=== PATIENT | female | born 1935 | race Two or more races ===

== ENCOUNTER 2020-09-06 11:32 | Inpatient (IN) | payer OTHER ==
[~2020-09-06] VITALS: Ht 144.8 cm; Wt 50.3 kg
--- NOTE | 2020-09-06 11:50 | NUR ---
BIBDAUGHTER, C/O LLQ ABDOMINAL PAIN R/T BACK PS.5/10 +N/V X 3 DAYS. DAUGHTER AT BEDSIDE FOR TRANSLATION IN OCCITAN. PATIENT A/OX4, BREATHING EVEN AND UNLABORED, NO SOB NOTED. CHANGED INTO A GOWN.
[2020-09-06] MEDS ORDERED: ONDANSETRON HCL/PF 4 MG/2 ML VIAL ONE (12:07)
[2020-09-06] MEDS ORDERED: MORPHINE SULFATE INJ 2 MG/ML DISP.SYRIN ONE (12:07)
[2020-09-06] MEDS ORDERED: PANTOPRAZOLE 40 MG VIAL ONE (12:07)
[2020-09-06 12:10] LABS: BILIRUBIN,URINE SMALL (NEGATIVE); COLOR,URINE DARK YELLOW (YELLOW); LEUKOCYTE ESTERASE ,URINE Negative (NEGATIVE); NITRITE, URINE Negative (NEGATIVE); PROTEIN,URINE 100 mg/dl (NEGATIVE); UGLUCOSE Negative (NEGATIVE); UROBILINOGEN,URINE 0.2 EU/dL (0.2)
--- NOTE | 2020-09-06 12:10 | NUR ---
IV LINE ESTABLISHED, BLOOD DRAWN AND SENT TO LAB. URINE SENT TO LAB
[2020-09-06] MEDS ORDERED: LOSA50TA39 PO (12:12)
[2020-09-06] MEDS ORDERED: FAMO20TA8 PO (12:12)
[2020-09-06] MEDS ORDERED: METO5TAB2 PO (12:12)
[2020-09-06] MEDS ORDERED: PANT40TA49 PO (12:12)
[2020-09-06 12:15] LABS: BASOPHILS # (AUTO) 0.1 /CMM (0.0-0.2); EOSINOPHILS % (AUTO) 1.2 % (0.0-6.0); HEMATOCRIT 32 % (33-45); HEMOGLOBIN 10.7 g/dL (11.5-14.8); LYMPHOCYTES # (AUTO) 1.5 /CMM (0.8-4.8); MEAN CORPUSCULAR HGB CONC 33 g/dl (31.0-36.0); MEAN CORPUSCULAR VOLUME 82 fL (82-100); MONOCYTES # (AUTO) 0.9 /CMM (0.1-1.30); MONOCYTES % (AUTO) 8.6 % (2.0-12.0); NEUTROPHILS # (AUTO) 7.9 /CMM (1.8-8.9); NEUTROPHILS % (AUTO) 75.2 % (43.0-81.0); PLATELET COUNT (AUTO) 609 /CMM (150-450); RED BLOOD CELL COUNT(AUTO) 3.88 MIL/uL (4.0-5.2); WHITE BLOOD COUNT (AUTO) 10.5 K/uL (4.3-11.0)
[2020-09-06 12:26] LABS: CARBON DIOXIDE 25 mmol/L (21-32); CHLORIDE 96 mmol/L (98-107); CREATININE 0.7 mg/dL (0.6-1.3); GLUCOSE 152 mg/dL (74-106); POTASSIUM 4.8 mmol/L (3.5-5.1); SODIUM SERUM 131 mmol/L (136-145); UREA NITROGEN, BLOOD 15 mg/dL (7-18)
[2020-09-06 12:30] LABS: RBC,URINE 0-2 /HPF (0-2)
[2020-09-06] MEDS ORDERED: IV NS 0.9% 1,000 ML BAG IV ONE (12:30)
[2020-09-06] MEDS ORDERED: PANTOPRAZOLE 40 MG VIAL IV ONE (12:30)
[2020-09-06] MEDS ORDERED: ONDANSETRON HCL/PF 4 MG/2 ML VIAL IVP ONE (12:30)
[2020-09-06] MEDS ORDERED: MORPHINE SULFATE INJ 2 MG/ML DISP.SYRIN IV ONE (12:30)
[2020-09-06 12:31] LABS: BACTERIA,URINE None seen /HPF (None Seen)
[2020-09-06 12:37] LABS: ALANINE AMINOTRANSFERASE 52 U/L (12-78); ALKALINE PHOSPHATASE 340 U/L (46-116); ASPARTATE AMINOTRANSFERASE 81 U/L (15-37); BILIRUBIN,DIRECT 0.1 mg/dL (0.0-0.2); BILIRUBIN,TOTAL 0.4 mg/dL (0.2-1.0); TOTAL PROTEIN, SERUM 7.2 g/dL (6.4-8.2)
--- NOTE | 2020-09-06 12:37 | NUR ---
TAKEN TO CT
[2020-09-06 13:00] LABS: LIPASE 1102 U/L (73-393)
[2020-09-06] MEDS ORDERED: MAGNESIUM HYDROXIDE 30 ML UDC PO PRN (14:00)
[2020-09-06] MEDS ORDERED: MORPHINE SULFATE INJ 2 MG/ML DISP.SYRIN IV PRN (14:00)
[2020-09-06] MEDS ORDERED: MAG HYDROX/AL HYDROX/SIMETH 30 ML UDC PO PRN (14:00)
[2020-09-06] MEDS ORDERED: Z GUARD REMEDY 2 OZ OINT TP PRN (14:00)
[2020-09-06] MEDS ORDERED: ONDANSETRON HCL/PF 4 MG/2 ML VIAL IVP PRN (14:00)
[2020-09-06] MEDS ORDERED: LORAZEPAM INJ 2 MG/ML VIAL IV PRN (14:00)
--- NOTE | 2020-09-06 14:07 | NUR ---
REPORT GIVEN TO EMILIE ALARCON FOR TJ.
--- NOTE | 2020-09-06 14:28 | NUR ---
PATIENT TRANSFERRED TO ROOM 304-1, IN STABLE CONDITION. PATIENT RESTING.
[2020-09-06 14:30] VITALS: BP 132/72
--- NOTE | 2020-09-06 14:30 | NUR ---
RN NOTES PATIENT TRANSFERRED TO UNIT AT ROOM 304-1 VIA RNEY, ACCOMPANIED BY 2 ER NURSES. PATIENT ABLE TO AMBULATE SHORT DISTANCE W/ ASSIST. MALAY-SPEAKING, A/O X4, ABLE TO MAKE NEEDS KNOWN. BREATHING EVEN AND UNLABORED IN ROOM AIR. SAFETY MEASURES INSTITUTED. CALL LIGHT USE DEMONSTRATED TO PATIENT, ABLE TO RETURN DEMO. WILL CONTINUE TO MONITOR.
[2020-09-06] MEDS: IV NS 0.9% 1,000 ML IV PRN (15:02)
[2020-09-06] MEDS: PANTOPRAZOLE 40 MG VIAL IV SCH (15:03)
[2020-09-06] MEDS: ENOXAPARIN SODIUM 40 MG/0.4 ML DISP.SYRIN SQ SCH (15:20)
[2020-09-06] MEDS: METOCLOPRAMIDE HCL 10 MG/2 ML VIAL IV SCH (16:10)
--- NOTE | 2020-09-06 16:33 | NUR ---
RN NOTES PATIENT RESTING IN BED, PROVIDED W/ WARM BLANKET. SIA BOYCE, TRANSLATED KOREAN FOR STAFF/PATIENT.
--- NOTE | 2020-09-06 18:08 | NUR ---
RN NOTES PATIENT RESTING IN BED, EYES CLOSED, ABLE TO BE AWAKENED. BREATHING EVEN AND UNLABORED, CONTINUES ON ROOM AIR, NO ACUTE DISTRESS. IVF OF NS INFUSING AT 100ML/HR; IV MEDS GIVEN TO PATIENT. SPOKE W/ PATIENT'S DTR, DESHAWN, AND INFORMED ABOUT PATIENT'S ADMISSION TO UNIT AND PLAN OF CARE FOR GI CONSULT, VERBALIZED AGREEMENT W/ PLAN. NPO STATUS AND SAFETY PRECAUTIONS MAINTAINED.
--- NOTE | 2020-09-06 19:30 | NUR ---
MS RN OPENING PATIENT IN BED. AWAKE. DAUGHTER IN ROOM. NPO SIGN IN PLACE. R. AC RUNNING NS @100 ML/HR. NO S/S OF DISTRESS. NO C/O PAIN ENRIQUE. SAFETY IN PLACE. WILL CONTINUE TO MONITOR.
[2020-09-06 20:00] VITALS: BP_SYST 126; BP_SYST 136; BP_DIAS 66; BP_DIAS 88
[2020-09-07] MEDS: IV NS 0.9% 1,000 ML IV PRN ×2 (03:47→18:41)
[2020-09-07 06:10] LABS: BASOPHILS # (AUTO) 0.1 /CMM (0.0-0.2); BASOPHILS % (AUTO) 0.6 % (0.0-2.0); EOSINOPHILS % (AUTO) 4.3 % (0.0-6.0); HEMATOCRIT 29 % (33-45); HEMOGLOBIN 9.6 g/dL (11.5-14.8); LYMPHOCYTES # (AUTO) 1.4 /CMM (0.8-4.8); MEAN CORPUSCULAR HGB CONC 33 g/dl (31.0-36.0); MEAN CORPUSCULAR VOLUME 85 fL (82-100); MONOCYTES % (AUTO) 10.4 % (2.0-12.0); NEUTROPHILS # (AUTO) 6.9 /CMM (1.8-8.9); NEUTROPHILS % (AUTO) 70.7 % (43.0-81.0); PLATELET COUNT (AUTO) 510 /CMM (150-450); RED BLOOD CELL COUNT(AUTO) 3.42 MIL/uL (4.0-5.2); WHITE BLOOD COUNT (AUTO) 9.8 K/uL (4.3-11.0)
--- NOTE | 2020-09-07 06:48 | NUR ---
MS RN CLOSING PATIENT IN BED WITH EYES CLOSED, EASY TO AROUSE. ALERT AND ORIENTED x4 AND ABLE TO MAKE NEEDS KNOWN. ALL NEEDS ATTENDED. NO S/S OF DISTRESS. NO C/O PAIN ENRIQUE. IV RUNNING NS @100ML. PATIENT'S WALKER AT BED SIDE. SAFETY KEPT IN PLACE THE WHOLE SHIFT: BED IN LOWEST, LOCKED POSITION; CALL LIGHT WITHIN REACH, NPO SIGN POSTED. WILL ENDORSE CARE TO AM SHIFT RN.
[2020-09-07 07:11] LABS: CREATININE 0.6 mg/dL (0.6-1.3); PHOSPHORUS 3.4 mg/dL (2.5-4.9)
--- NOTE | 2020-09-07 07:30 | NUR ---
RN OPENING NOTES RECEIVED PATIENT IN BED, AWAKE, A&0 X 4, VITAL SIGNS TAKEN AND RECORDED, PATIENT IS BULGARIAN SPEAKING BUT UNDERSTANDS A LITTLE GUINEAN. ON ROOM AIR TOLERATING WELL. REINFORCED NPO STATUS. NO COMPLAINTS OF N/V AT THIS TIME, NO COMPLAINTS OF PAIN AT THIS TIME. WITH AN ONGOING IVF OF NS 1L X 100 CC/HR INFUSING WELL AT PATIENT'S RIGHT AC. NO INFILTRATION NOTED, NO REDNESS NOTED. SAFETY PRECAUTIONS OBSERVED: BED ON LOWEST LOCKED POSITION. KEPT CALL LIGHT WITHIN EASY REACH. WILL CONTINUE TO MONITOR CURRENT STATUS.
[2020-09-07 07:37] LABS: THYROID STIMULATING HORMONE 3.826 uIU/mL (0.358-3.74)
[2020-09-07 08:00] VITALS: BP 142/75
[2020-09-07] MEDS: METOCLOPRAMIDE HCL 10 MG/2 ML VIAL IV SCH ×2 (08:37→16:55)
[2020-09-07] MEDS: PANTOPRAZOLE 40 MG VIAL IV SCH (08:37)
[2020-09-07] MEDS: LOSARTAN POTASSIUM 50 MG TABLET PO SCH (08:37)
[2020-09-07 16:00] VITALS: BP 142/76
--- NOTE | 2020-09-07 18:58 | NUR ---
MS RN CLOSING NOTES PATIENT IN BED, AWAKE, A&0 X 4, VITAL SIGNS WNL. ON ROOM AIR TOLERATING WELL. STILL NPO STATUS. NO COMPLAINTS OF N/V AT THIS TIME, NO COMPLAINTS OF PAIN AT THIS TIME. WITH AN ONGOING IVF OF NS 1L X 100 CC/HR INFUSING WELL AT PATIENT'S RIGHT AC. NO INFILTRATION NOTED, NO REDNESS NOTED. SAFETY PRECAUTIONS OBSERVED: BED ON LOWEST LOCKED POSITION. KEPT CALL LIGHT WITHIN EASY REACH, SIDE RAILS UP X 2. STILL FOR GI CONSULT, AWARE. ENDORSED TO SLAB DEPILER OPERATOR NURSE FOR CONTINUITY OF CARE.
--- NOTE | 2020-09-07 19:05 | NUR ---
RN NOTES: RECEIEVED AWAKE ON BED, WITH DAUGHTER PRESENT AT BEDSIDE, A/0X4, SOMALI SPEAKING,PLEASANT PERSONALITY, ABLE TO MAKE NEEDS KNOWN, ORIENTED TO UNIT AND STAFF,WITH BRP,AMBULATORY WITH WALKER, STAND BY ASSIST, STILL ON NPO IVF OF NA AT 100ML/HR, CANNULA ON RAC G#20 PATENT, STILL PENDING FOR GI CONSULT, AWAITING TO BE SEEN BY .FOR MORNING LAB TEST.
[2020-09-07 20:00] VITALS: BP 137/82
--- NOTE | 2020-09-07 20:30 | NUR ---
RN NOTES: -NEEDS ATTENDED, CN NOTIFIED, GI DOCTOR DID NOT COME YET. STILL AWAITING.
[2020-09-07] MEDS: ENOXAPARIN SODIUM 40 MG/0.4 ML DISP.SYRIN SQ SCH (21:05)
--- NOTE | 2020-09-07 21:14 | NUR ---
RN NOTES: ASSISTED TO THE BATHROOM, STABLE GAIT WITH STAND BY ASSIST ABLE TO WALK WITH WALKER, NEEDS ATTENDED, MED GIVEN.
--- NOTE | 2020-09-08 02:40 | NUR ---
RN NOTES: ASLEEP MOST OF THE TIME, FALL PRECAUTION OBSERVED, KEPT CALL LIGHT WITHIN EASY REACH.
[2020-09-08] MEDS: IV NS 0.9% 1,000 ML IV PRN ×2 (04:30→15:19)
--- NOTE | 2020-09-08 04:31 | NUR ---
RN NOTES: IVF CONSUMED CHANGE TO NEW BAG.CONTINUE ON NS AT 75 ML/HR. Addendum: 09/08/20 at 0437 by EZEKIEL SANFORD RN ADDED NOTES: UNABLE TO SCAN IV FLUIDS, MANUALLY ENTERED THE BAR CODE.
[2020-09-08 06:16] LABS: BASOPHILS # (AUTO) 0.1 /CMM (0.0-0.2); EOSINOPHILS % (AUTO) 3.1 % (0.0-6.0); HEMATOCRIT 28 % (33-45); HEMOGLOBIN 9.3 g/dL (11.5-14.8); LYMPHOCYTES # (AUTO) 1.4 /CMM (0.8-4.8); LYMPHOCYTES % (AUTO) 12.7 % (20.0-44.0); MEAN CORPUSCULAR HGB CONC 34 g/dl (31.0-36.0); MEAN CORPUSCULAR VOLUME 84 fL (82-100); MONOCYTES # (AUTO) 1.2 /CMM (0.1-1.30); MONOCYTES % (AUTO) 11.7 % (2.0-12.0); NEUTROPHILS # (AUTO) 7.7 /CMM (1.8-8.9); NEUTROPHILS % (AUTO) 71.5 % (43.0-81.0); PLATELET COUNT (AUTO) 505 /CMM (150-450); WHITE BLOOD COUNT (AUTO) 10.7 K/uL (4.3-11.0)
[2020-09-08 06:45] LABS: CALCIUM, SERUM 7.5 mg/dL (8.5-10.1); CREATININE 0.7 mg/dL (0.6-1.3); POTASSIUM 4.1 mmol/L (3.5-5.1)
--- NOTE | 2020-09-08 07:49 | NUR ---
MS RN OPENING NOTES RECEIVED PATIENT, AWAKE SITTING ON BED. ALERT AND ORIENTED X 4, UZBEK SPEAKING. NO SIGNS OR SYMPTOMS OF DISTRESS NOTED. NO C/O PAIN AT THIS TIME. NO SOB. IV ACCESS RAC#20 PATENT AND INTACT, WITH NS RUNNING @ 100MLS/HR. SAFETY MEASURES IN PLACE, BED LOCKED AT LOWEST POSITION, SIDE RAILS UP X 2. WILL CONTINUE TO MONITOR PATIENT THROUGHOUT SHIFT.
[2020-09-08 08:00] VITALS: BP 133/72
[2020-09-08] MEDS: METOCLOPRAMIDE HCL 10 MG/2 ML VIAL IV SCH ×2 (09:38→16:52)
[2020-09-08] MEDS: LOSARTAN POTASSIUM 50 MG TABLET PO SCH (09:39)
[2020-09-08] MEDS: PANTOPRAZOLE 40 MG VIAL IV SCH (09:39)
[2020-09-08] MEDS: ACETAMINOPHEN 325 MG TABLET PO PRN (09:57)
--- NOTE | 2020-09-08 14:00 | NUR ---
MS RN NOTES PATIENT IS AWAKE SITTING IN BED. ALERT AND ORIENTED X 4. NO COMPLAINTS OF PAIN AT THIS TIME. WILL CONTINUE TO MONITOR PATIENT.
[2020-09-08 16:00] VITALS: BP 127/66
--- NOTE | 2020-09-08 18:53 | NUR ---
MS ALARCON CONTINU NOTES RECEIVED PATIENT, AWAKE SITTING ON BED. ALERT AND ORIENTED X 4, MAORI SPEAKING. NO SIGNS OR SYMPTOMS OF DISTRESS NOTED. NO C/O PAIN AT THIS TIME. NO SOB. IV ACCESS RAC#20 PATENT AND INTACT, WITH NS RUNNING @ 100MLS/HR. SAFETY MEASURES IN PLACE, BED LOCKED AT LOWEST POSITION, SIDE RAILS UP X 2. WILL CONTINUE TO MONITOR PATIENT THROUGHOUT SHIFT. Addendum: 09/08/20 at 1854 by PANCHO YING RN DISREGARD ABOVE NOTE ADDENDUM- ERROR
--- NOTE | 2020-09-08 18:54 | NUR ---
MS RN CLOSING NOTES PATIENT IS AWAKE, STANDING NEXT TO BEDSIDE WITH WALKER. ALERT AND ORIENTED X 4, ICELANDIC SPEAKING. NO SIGNS OR SYMPTOMS OF DISTRESS NOTED. NO C/O PAIN AT THIS TIME. NO SOB. IV ACCESS RAC#20 PATENT AND INTACT, WITH NS RUNNING @ 100MLS/HR. SAFETY MEASURES IN PLACE, BED LOCKED AT LOWEST POSITION, SIDE RAILS UP X 2. CALL LIGHT IS WITHIN REACH. WILL ENDORSE CONTINUITY OF CARE TO NEXT SHIFT.
--- NOTE | 2020-09-08 19:58 | NUR ---
MS RN OPENING NOTE PATIENT IN BED A/OX4; FINNISH SPEAKING. TOLERATING ROOM AIR WELL WITH NO SOB. DENIES PAIN OR DISCOMFORT AT THIS TIME. PATIENT MAINTAINED ON CLEAR LIQUID DIET. RAC #20G NS @ 100ML/HR; PATENT AND INTACT. SAFETY MEASURES IN PLACE: BED IN LOWEST LOCKED POSITION, SIDE RAILS UPX2 CALL LIGHT WITHIN EASY REACH. PATIENT IN STABLE CONDITION, WILL CONTINUE PLAN OF CARE.
[2020-09-08 20:11] VITALS: BP 106/46
--- NOTE | 2020-09-08 20:30 | NUR ---
MS RN NOTE - CONSENT EDUCATED PATIENT ON PROCEDURE FOR MRCP WITHOUT CONTRAST; PATIENT AGREED AND SIGNED CONSENT.
[2020-09-08] MEDS: ENOXAPARIN SODIUM 40 MG/0.4 ML DISP.SYRIN SQ SCH (21:34)
--- NOTE | 2020-09-08 23:30 | NUR ---
MS ALARCON NOTE - ATIVAN PATIENT C/O FEELING ANXIOUS AND REQUESTED FOR ATIVAN. ADMINISTERED ATIVAN ORDERED. Addendum: 09/09/20 at 0014 by LIZ HARKINS RN ERROR WRONG PATIENT. DISREGARD NOTE
[2020-09-09] MEDS: IV NS 0.9% 1,000 ML IV PRN (04:34)
[2020-09-09 05:53] LABS: BASOPHILS # (AUTO) 0.1 /CMM (0.0-0.2); EOSINOPHILS % (AUTO) 6.4 % (0.0-6.0); HEMATOCRIT 27 % (33-45); HEMOGLOBIN 8.9 g/dL (11.5-14.8); LYMPHOCYTES # (AUTO) 1.1 /CMM (0.8-4.8); LYMPHOCYTES % (AUTO) 12.2 % (20.0-44.0); MEAN CORPUSCULAR HGB CONC 33 g/dl (31.0-36.0); MEAN CORPUSCULAR VOLUME 85 fL (82-100); MONOCYTES # (AUTO) 0.9 /CMM (0.1-1.30); MONOCYTES % (AUTO) 10.2 % (2.0-12.0); NEUTROPHILS # (AUTO) 6.3 /CMM (1.8-8.9); NEUTROPHILS % (AUTO) 70.2 % (43.0-81.0); PLATELET COUNT (AUTO) 481 /CMM (150-450); RED BLOOD CELL COUNT(AUTO) 3.18 MIL/uL (4.0-5.2); WHITE BLOOD COUNT (AUTO) 8.9 K/uL (4.3-11.0)
--- NOTE | 2020-09-09 06:18 | NUR ---
MS RN CLOSING NOTE PATIENT IN BED A/OX4; COSTA RICAN SPEAKING. TOLERATING ROOM AIR WELL WITH NO SOB. DENIES PAIN OR DISCOMFORT AT THIS TIME. PATIENT MAINTAINED ON NPO DIET. RAC #20G NS @ 100ML/HR; PATENT AND INTACT. SAFETY MEASURES IN PLACE: BED IN LOWEST LOCKED POSITION, SIDE RAILS UPX2 CALL LIGHT WITHIN EASY REACH. PATIENT IN STABLE CONDITION, WILL ENDORSE PLAN OF CARE TO ONCOMING MORNING RN.
[2020-09-09 06:39] LABS: CALCIUM, SERUM 7.6 mg/dL (8.5-10.1); CARBON DIOXIDE 22 mmol/L (21-32); CHLORIDE 109 mmol/L (98-107); CREATININE 0.5 mg/dL (0.6-1.3); GLUCOSE 93 mg/dL (74-106); POTASSIUM 3.4 mmol/L (3.5-5.1); SODIUM SERUM 139 mmol/L (136-145); UREA NITROGEN, BLOOD 8 mg/dL (7-18)
--- NOTE | 2020-09-09 07:31 | NUR ---
MS RN OPENING NOTES RECEIVED PATIENT, AWAKE IN BED. ALERT AND ORIENTED X 4, TAJIK SPEAKING. NO SIGNS OR SYMPTOMS OF DISTRESS NOTED. NO C/O PAIN AT THIS TIME. NO SOB. IV ACCESS RAC#20 PATENT AND INTACT, WITH NS RUNNING @ 100MLS/HR. SAFETY MEASURES IN PLACE, BED LOCKED AT LOWEST POSITION, SIDE RAILS UP X 2. WILL CONTINUE TO MONITOR PATIENT THROUGHOUT SHIFT.
[2020-09-09 08:00] VITALS: BP 121/62
[2020-09-09 08:12] LABS: LIPASE 2249 U/L (73-393)
[2020-09-09] MEDS: LOSARTAN POTASSIUM 50 MG TABLET PO SCH (09:00)
[2020-09-09] MEDS: METOCLOPRAMIDE HCL 10 MG/2 ML VIAL IV SCH ×2 (09:06→16:06)
[2020-09-09] MEDS: POTASSIUM CL. PREMIX PERIPHER. 50 ML IV SCH ×2 (09:06→09:52)
[2020-09-09] MEDS: PANTOPRAZOLE 40 MG VIAL IV SCH (09:06)
--- NOTE | 2020-09-09 10:12 | NUR ---
MS ALARCONPLASTICS TOOLING ENGINEER NOTES PATIENT WAS DISCHARGED WITH STABLE VITAL SIGNS. ALERT AND ORIENTED X4. NO SIGNS OR SYMPTOMS OF DISTRESS NOTED. NO C/O PAIN AT THIS TIME. MORNING MEDICATIONS GIVEN PRESCRIBED. ALL BELONGINGS REVIEWED WITH PATIENT AND CHECK LIST COMPLETED AND SIGNED WITH PATIENT. DISCHARGE SUMMARY REVIEWED WITH PATIENT AND DAUGHTER INCLUDING NEW MEDICATIONS. WRIST BAND REMOVED. DAUGHTER REFUSED WHEELCHAIR TO BE ESCORTED OUT. PATIENT ACCOMPANIED OUT THE FACILITY @ 1000. Addendum: 09/09/20 at 1018 by PANCHO YING RN DISREGARD PREVIOUS NOTES-- ERROR
--- NOTE | 2020-09-09 10:38 | NUR ---
MS RN NOTES AT THIS TIME, PATIENT WAS TRANSPORTED OUT OF UNIT TO RADIOLOGY VIA WHEELCHAIR BY [facility] FACILITIES CLERK .
--- NOTE | 2020-09-09 11:13 | NUR ---
MS RN NOTES PATIENT RETURNED FROM RADIOLOGY AT THIS TIME BY [facility] IN STABLE CONDITION.
--- NOTE | 2020-09-09 11:26 | NUR ---
Steam Box Hand note: marketing services coordinator notified for request per patient to file for Disability Insurance. Patient is a 85-year-old, female. SW met with patient at her bedside in the med-surg unit. Patient presented in pain and was speaking to her RN Seble. SW provided patient with Disability Insurance information and patient stated that her daughter, Karen Jonas, , can help her with the application. SW asked patient about her current living arrangement and patient stated that she currently lives with her daughter at [address] [place] [address], [place] [address]; [phone]. Patient stated that she plans to return to her prior living arrangement and will be picked up by her daughter Karen at the time of discharge. No further SS intervention at this time, however, SW will remain available as needed.
[2020-09-09] MEDS: ACETAMINOPHEN 325 MG TABLET PO PRN (11:28)
--- NOTE | 2020-09-09 12:28 | NUR ---
MS RN NOTES PATIENT HAD VASOVAGAL REACTION POST-VENIPUNCTURE RESTICK IN LEFT ARM. PATIENT VITAL SIGNS WERE STABLE AT BP 149/46 HR 80 TEMPERATURE 97.8 AND PULSE OX READING OF 97. BS 130. ORTHOSTATIC BLOOD PRESSURE TAKEN WITH THE FOLLOWING READINGS: LYING- BP 120/63, HR 80, SPO2 97, RR 18 , SITTING- BP 113/59, HR 83, SPO2 95, RR 18, STANDING- BP 1122/57 HR 89, SPO2 97. PATIENT IS ALERT AND ORIENTED X4. NO SIGNS OR SYMPTOMS OF DISTRESS NOTED. WILL CONTINUE TO MONITOR PATIENT THROUGHOUT SHIFT.
[2020-09-09] MEDS ORDERED: MAGNESIUM HYDROXIDE 30 ML UDC PO PRN (13:00)
--- NOTE | 2020-09-09 13:32 | NUR ---
MS RN NOTES PATIENT IS RESTING COMFORTABLY IN BED WITH STABLE VITAL SIGNS. ABLE TO TOLERATE CLEAR DIET DURING LUNCH. PATIENT'S DAUGHTER IS AT BEDSIDE.
--- NOTE | 2020-09-09 14:31 | NUR ---
MS RN NOTES DR. ELEANOR FERNANDO MADE AWARE OF MRCP RESULTS, WITH ORDER FOR CLEAR LIQUID DIET AND ADVANCE TOLERATED.
[2020-09-09 16:00] VITALS: BP 116/61
--- NOTE | 2020-09-09 18:49 | NUR ---
RN CLOSING NOTES PATIENT AWAKE IN BED. ALERT AND ORIENTED X 4, MAURITANIAN SPEAKING. NO SIGNS OR SYMPTOMS OF DISTRESS NOTED. PER PATIENT, SHE HAS SOME DISCOMFORT IN ABDOMEN AREA DUE TO NO BOWEL MOVEMENT FOR 4 DAYS. MILK OF MAGNESIA ADMINISTERED AT 1308. NO SOB. IV ACCESS RAC#20 REMOVED DUE TO LEAKAGE AND DISCOMFORT PER PATIENT, REINSERTED IV ACCESS AT LAC#22, BECAME INFILTRATED AND REMOVED WELL. REINSTERTION OF RWRIST#22 PATENT AND INTACT WITH NS RUNNING @ 100MLS/HR. SAFETY MEASURES IN PLACE, BED LOCKED AT LOWEST POSITION, SIDE RAILS UP X 2. WILL ENDORSE CONTINUITY OF CARE TO ONCOMING SHIFT.
--- NOTE | 2020-09-09 19:30 | NUR ---
MSRN FULLY AWAKE. FAMILY AT BEDSIDE. PRESENT IVF INFUSING WELL VIA RIGHT WRIST. NO NEEDS FOR NOW. NO DISCOMFORTS OF THIS TIME. POSSIBLE DC TOMORROW PER MD. NO NAUSEA OR VOMITING, REMINDED TO CALL STAFF FOR ANY ASSISTANCE OR FURTHER DISCOMFORTS. CALL LIGHT USE REVIEWED WITH PATIENT WELL UNDERSTOOD.
[2020-09-09 20:00] VITALS: BP 115/64
[2020-09-09] MEDS: ENOXAPARIN SODIUM 40 MG/0.4 ML DISP.SYRIN SQ SCH (20:58)
--- NOTE | 2020-09-10 01:00 | NUR ---
MSRN ASSISTED TO RESTROOM VOIDED FREELY. NO BM STILL. WILL FOLLOW UP IN AM WITH MD, PREFERS DULCOLAX TABS.
[2020-09-10] MEDS: IV NS 0.9% 1,000 ML IV PRN (05:25)
--- NOTE | 2020-09-10 05:34 | NUR ---
MSRN PRESENT IVF INFUSING WELL. EAGER TO GO HOME TODAY. ALL NEEDS MADE, CLOSELY WATCHED.
[2020-09-10 06:24] LABS: BASOPHILS # (AUTO) 0.1 /CMM (0.0-0.2); BASOPHILS % (AUTO) 1.1 % (0.0-2.0); EOSINOPHILS % (AUTO) 6.8 % (0.0-6.0); HEMATOCRIT 27 % (33-45); LYMPHOCYTES # (AUTO) 1.7 /CMM (0.8-4.8); LYMPHOCYTES % (AUTO) 20.6 % (20.0-44.0); MEAN CORPUSCULAR HGB CONC 33 g/dl (31.0-36.0); MEAN CORPUSCULAR VOLUME 83 fL (82-100); MONOCYTES # (AUTO) 0.8 /CMM (0.1-1.30); MONOCYTES % (AUTO) 9.6 % (2.0-12.0); NEUTROPHILS % (AUTO) 61.9 % (43.0-81.0); PLATELET COUNT (AUTO) 529 /CMM (150-450); RED BLOOD CELL COUNT(AUTO) 3.23 MIL/uL (4.0-5.2)
[2020-09-10 06:35] LABS: CALCIUM, SERUM 7.9 mg/dL (8.5-10.1); CARBON DIOXIDE 22 mmol/L (21-32); CHLORIDE 107 mmol/L (98-107); CREATININE 0.5 mg/dL (0.6-1.3); GLUCOSE 94 mg/dL (74-106); POTASSIUM 3.9 mmol/L (3.5-5.1); SODIUM SERUM 140 mmol/L (136-145); UREA NITROGEN, BLOOD 6 mg/dL (7-18)
[2020-09-10 06:51] LABS: LIPASE 2143 U/L (73-393)
--- NOTE | 2020-09-10 07:44 | NUR ---
MS RN OPENING NOTES RECEIVED PATIENT LYING IN BED, AWAKE. A/O X 4, TAJIK SPEAKING. ON ROOM AIR - TOLERATING WELL, NO SOB NOTED. NO C/O PAIN AT THIS TIME. IV ACCESS TO R WRIST#22 - PATENT AND INTACT, RUNNING NS @ 100MLS/HR. PATIENT AMBULATES WITH WALKER. SAFETY MEASURES IN PLACE. WILL CONTINUE TO MONITOR.
[2020-09-10 08:10] VITALS: BP 134/72
[2020-09-10] MEDS: PANTOPRAZOLE 40 MG VIAL IV SCH (08:24)
[2020-09-10 08:25] VITALS: BP 134/72
[2020-09-10] MEDS: METOCLOPRAMIDE HCL 10 MG/2 ML VIAL IV SCH (08:25)
[2020-09-10] MEDS: LOSARTAN POTASSIUM 50 MG TABLET PO SCH (08:25)
[2020-09-10] MEDS ORDERED: PANT40TA2 PO (09:17)
[2020-09-10] MEDS ORDERED: FAMO20TA8 PO (15:55)
--- NOTE | 2020-09-10 16:23 | NUR ---
MS NUTRITION AIDE NOTE PATIENT DISCHARGED VIA PRIVATE CAR @ 1610. PATIENT STABLE, A/O X4, MEXICAN SPEAKING ONLY BUT UNDERSTOOD MINIMAL LAO. DAUGHTER AT BEDSIDE, ABLE TO REVIEW ALL EDUCATION AND EXITCARE INSTRUCTIONS WITH DAUGHTER. SIGNED DISCHARGE PAPERWORK. SKIN INTACT. NO SOB OR DISTRESS NOTED. IV REMOVED, WRISTBAND REMOVED. PATIENT FULL DRESSED IN OWN CLOTHES. PATIENT ACCOMPANIED TO THE LOBBY VIA WHEELCHAIR BY DAUGHTER AND [place] STOVALL.
== END 2020-09-10 16:17 | disposition home or self-care (01) | DRG 282 ==
LOC: ER 11:38 → MED 14:00
PROVIDERS: ADMIT Nurse Practitioner Acute Care; ATTEND Registered Nurse
DX: K85.90 Acute pancreatitis without necrosis or infection, unspecified (principal); R18.8 Other ascites; E86.0 Dehydration; E83.51 Hypocalcemia; D63.8 Anemia in other chronic diseases classified elsewhere; K31.84 Gastroparesis; E87.1 Hypo-osmolality and hyponatremia; E86.1 Hypovolemia; K21.9 Gastro-esophageal reflux disease without esophagitis; I10 Essential (primary) hypertension; Z87.11 Personal history of peptic ulcer disease; R73.9 Hyperglycemia, unspecified; M81.0 Age-related osteoporosis without current pathological fracture; D47.3 Essential (hemorrhagic) thrombocythemia; Z98.1 Arthrodesis status; K76.9 Liver disease, unspecified; K86.1 Other chronic pancreatitis; E87.6 Hypokalemia; Z20.822 Contact with and (suspected) exposure to COVID-19
CPT/HCPCS: 36415; 71045-TC; 74181-TC; 80048-TC; 80061-TC; 80076-TC; 81001; 82962-TC; 83690-TC; 83735-TC; 84100-TC; 84436-TC; 84443-TC; 84484-TC; 85025-TC; 87081-TC; C9113; C9803; G0378; J1650; J2270; J2405; J2765; J3480; J7030